=== PATIENT | male | born 1940 | race Hispanic/Latino ===

== ENCOUNTER → 2017-09-03 | Outpatient (CLI) | payer MEDICARE, OTHER | END | disposition home or self-care (01) | LOC: RAH 08-20 11:01 | PROVIDERS: ATTEND Physical Medicine & Rehabilitation | DX: M50.323 Other cervical disc degeneration at C6-C7 level (principal); M48.02 Spinal stenosis, cervical region; M47.892 Other spondylosis, cervical region | CPT/HCPCS: 72141 ==